=== PATIENT | female | born 1965 ===

== ENCOUNTER 2020-01-23 05:45 | Day surgery (SDC) | payer OTHER ==
[~2020-01-23 05:45] MED LIST: SIMVASTATIN20 MG PO
== END 2020-01-23 13:10 | disposition home or self-care (01) ==
LOC: CIR.AMB 05:45 → ADM 09:45 → CIR.AMB 13:00
PROVIDERS: ATTEND Orthopaedic Surgery Hand Surgery
DX: D48.0 Neoplasm of uncertain behavior of bone and articular cartilage (principal)

== ENCOUNTER 2020-12-19 08:23 | Outpatient (CLI) | payer OTHER | END 2020-12-19 08:38 | disposition home or self-care (01) | LOC: SONOGRAMA 08:23 | PROVIDERS: ATTEND Pathology Anatomic Pathology & Clinical Pathology | DX: E04.1 Nontoxic single thyroid nodule (principal) ==